=== PATIENT | male | born 1990 | race Caucasian/White ===

== ENCOUNTER 2023-05-08 22:26 | Emergency (ER) | payer MEDICAID ==
[~2023-05-08] VITALS: Ht 172.7 cm; Wt 99.8 kg
[2023-05-08 22:29] VITALS: BP 140/84; PULSE 110; RESP 16; TEMP 97.4; O2SAT 98
== END 2023-05-08 22:44 ==
LOC: MED 22:26
DX: Z02.89 Encounter for other administrative examinations (principal); V89.2XXA Person injured in unspecified motor-vehicle accident, traffic, initial encounter; Y93.89 Activity, other specified; Y92.411 Interstate highway as the place of occurrence of the external cause; Y99.8 Other external cause status
CPT/HCPCS: 99283